=== PATIENT | male | born 1945 | race Caucasian/White ===

== ENCOUNTER 2023-02-16 12:46 | Outpatient (CLI) | payer MEDICARE, OTHER ==
[2023-02-16 14:35] LABS: Hematocrit 37.6 % (38.8-50.0); Hemoglobin 12.7 g/dL (13.5-17.5); Mean Corpuscular HGB CONC 33.8 g/dL (32.0-36.0); Mean Corpuscular Hemoglobin 31.2 pg (27.0-33.0); Mean Corpuscular Volume 92.4 fl (81.2-95.1); Mean Platelet Volume 12.4 fl (7.4-10.4); Platelet Count 146 10x3/uL (150-450); RBC Distribution Width 13.8 % (11.5-14.5); Red Blood Cell (RBC) Count 4.07 10x6/uL (4.32-5.72); White Blood Cell (WBC) Count 5.9 10x3/uL (3.5-10.5)
[2023-02-16 14:39] LABS: Anion Gap 14 mmol/L (10-20); BUN (Urea Nitrogen) 29 mg/dL (8.4-25.7); Calc. Creatinine Clearance 0 mL/min (70-130); Carbon Dioxide 24 mmol/L (23-31); Chloride 108 mmol/L (98-107); Estimated GFR 69; Glucose 183 mg/dL (83-110); Potassium 4.3 mmol/L (3.5-5.1); Sodium 142 mmol/L (136-145)
[2023-02-16 14:40] LABS: Prothrombin Time 10.3 sec (9.5-12.1)
== END 2023-02-16 12:47 | disposition home or self-care (01) ==
LOC: CSHLAB 12:46
PROVIDERS: ATTEND Specialist
DX: Z01.818 Encounter for other preprocedural examination (principal)
CPT/HCPCS: 80048; 85027; 85610; 93005; 93010

== ENCOUNTER 2023-02-17 09:15 | Day surgery (SDC) | payer MEDICARE, OTHER ==
[2023-02-17] MEDS ORDERED: Aspirin 325 MG TAB ONE (09:32)
[2023-02-17] MEDS ORDERED: Ascorbic Acid 500 mg Chewable Tablet ONE (09:32)
[2023-02-17] MEDS ORDERED: Lidocaine 1% (PF) 30 ML VIAL ONE (12:37)
[2023-02-17] MEDS ORDERED: Nitroglycerin 50 MG/250 ML BOT 0 ML ONE (12:37)
[2023-02-17] MEDS ORDERED: Heparin 10,000 UNITS/ 10 ML VIAL ONE (12:37)
[2023-02-17] MEDS ORDERED: fentaNYL 50 mcg/mL 1 mL Vial ONE (12:38)
[2023-02-17] MEDS ORDERED: Midazolam HCl 2 mg/2 ml Vial ONE (12:38)
[2023-02-17] MEDS ORDERED: Iopamidol 300 61% 100 ML VIAL FS ONE (12:39)
== END 2023-02-17 19:30 | disposition home or self-care (01) ==
LOC: CSHCCL 09:15
PROVIDERS: ATTEND Specialist
PROC: B211YZZ Fluoroscopy of Multiple Coronary Arteries using Other Contrast (ICD-10-PCS; principal; 2023-02-17)
PROC: B217YZZ Fluoroscopy of Right Internal Mammary Bypass Graft using Other Contrast (ICD-10-PCS; 2023-02-17)
DX: I25.118 Atherosclerotic heart disease of native coronary artery with other forms of angina pectoris (principal); I70.219 Atherosclerosis of native arteries of extremities with intermittent claudication, unspecified extremity; I11.0 Hypertensive heart disease with heart failure; I50.32 Chronic diastolic (congestive) heart failure; E78.2 Mixed hyperlipidemia; E11.9 Type 2 diabetes mellitus without complications; M19.90 Unspecified osteoarthritis, unspecified site; I35.0 Nonrheumatic aortic (valve) stenosis; R93.1 Abnormal findings on diagnostic imaging of heart and coronary circulation; R94.39 Abnormal result of other cardiovascular function study; K21.9 Gastro-esophageal reflux disease without esophagitis; Z95.1 Presence of aortocoronary bypass graft; Z79.84 Long term (current) use of oral hypoglycemic drugs; Z79.899 Other long term (current) drug therapy; Z79.4 Long term (current) use of insulin; Z79.891 Long term (current) use of opiate analgesic; Z79.02 Long term (current) use of antithrombotics/antiplatelets; Z95.2 Presence of prosthetic heart valve
CPT/HCPCS: 37230; 37252; 37253; 75716; 75736; 82962; 93455; J3010; 36416; 99152; 99153; C1753; C1760; C1769; C1874; C1887; C1894; J1644; J2001; J2250